=== PATIENT | male | born 1985 | race Caucasian/White ===

== ENCOUNTER 2020-10-22 11:29 | Outpatient (REF) | payer BC, OTHER, SELFPAY ==
[2020-10-22 13:03] LABS: HCT 44.9 % (40.0-50.0); HGB 15.4 g/dL (13.5-17.5); MCH 32.5 pg (27.0-33.0); MCHC 34.3 % (32.0-36.0); MCV 94.7 fL (80-95); MPV 10.7 fL (8.0-11.0); Platelet Count 229 10^3/uL (130-400); RBC 4.74 10^6/uL (4.36-5.78); RDW 11.5 % (11.8-14.1); RDW-SD 39.4 fL; WBC 6.21 10^3/uL (4.4-10.8)
[2020-10-22 14:09] LABS: ALT 37 U/L (16-63); AST 12 U/L (15-37); Albumin 4.2 g/dL (3.4-5.0); Alkaline Phosphatase 66 U/L (46-116); Anion Gap 8.6 mmol/L (3-11); BUN 19 mg/dL (7-18); Bilirubin, Total 0.4 mg/dL (0.2-1.0); CO2 28.4 mmol/L (21.0-32.0); Calcium 9.2 mg/dL (8.5-10.1); Calculated LDL 116 mg/dL (<100); Chloride 103 mmol/L (98-107); Cholesterol 189 mg/dL (<200); Glucose 349 mg/dL (74-106); HDL Cholesterol 51 mg/dL (40-60); Potassium 4.6 mmol/L (3.5-5.1); Sodium 140 mmol/L (136-145); Total Protein 7.8 g/dL (6.4-8.2); Triglyceride 112 mg/dL (<150)
[2020-10-22 14:23] LABS: Hemoglobin A1C 9.5 % (<5.7)
== END 2020-10-22 11:30 | disposition home or self-care (01) ==
LOC: NCHCN 11:29
PROVIDERS: Visit Provider Physician Assistant
DX: E11.29 Type 2 diabetes mellitus with other diabetic kidney complication (principal)
CPT/HCPCS: 80053; 80061; 85027; 83036

== ENCOUNTER 2021-01-08 14:26 | Outpatient (REF) | payer BC, OTHER, SELFPAY ==
[2021-01-08 14:54] LABS: FREE T4 1.05 ng/dL (0.76-1.46); Hemoglobin A1C 9.5 % (<5.7); TSH 1.24 uIU/mL (0.36-3.74)
[2021-01-08 20:12] LABS: COMMENT (LAB VIEW ONLY) 31.23 mg/dL; Microalb ug/mg Crea 84.2 ug/mg Cr
[2021-01-14 10:51] LABS: Testosterone, Free 12.8 ng/dL (4.65-18.1); Testosterone, Total 427 ng/dL (240-950)
== END 2021-01-08 14:27 | disposition home or self-care (01) ==
LOC: NCHCN 14:26
PROVIDERS: Visit Provider Physician Assistant
DX: E11.29 Type 2 diabetes mellitus with other diabetic kidney complication (principal); R68.82 Decreased libido
CPT/HCPCS: 84402; 84403; 82043; 82570; 83036; 84439; 84443

== ENCOUNTER 2021-02-14 04:19 | Outpatient (CLI) | payer BC, OTHER, SELFPAY ==
--- NOTE | 2021-02-14 14:35 | DI.MRI_ITS ---
Exam(s) MR BRAIN WO EXAM: MR BRAIN WO CLINICAL HISTORY: MOYAMOYA,I67.5,S/P BILAT STA BYPASS,? INFARCT OR ISCHEMIA TECHNIQUE: Multiplanar multisequence MRI of the brain was performed. COMPARISON: No exams were available for comparison FINDINGS: VENTRICLES AND EXTRA AXIAL SPACES: Normal in size and morphology for the patient's age. MIDLINE SHIFT: None. CEREBRAL PARENCHYMA: No focus of restricted diffusion to suggest acute infarct. No space-occupying le boby identified. There lucency seen in the basal ganglia bilaterally which may represent old lacunar infarcts. There is an area of encephalomalacia involving the left parietal lobe. HEMORRHAGE: None. BRAINSTEM/CEREBELLUM: Normal. CALVARIUM: Normal. VISUALIZED PARANASAL SINUSES/MASTOIDS:Clear. PITUITARY GLAND: Unremarkable. OTHER FINDINGS: None. IMPRESSION: No evidence of an acute infarct. DATA REPOSITORY:
== END 2021-02-14 04:39 ==
PROVIDERS: Visit Provider Occupational Therapist
DX: I67.5 Moyamoya disease (principal); Z95.1 Presence of aortocoronary bypass graft
CPT/HCPCS: 70551

== ENCOUNTER 2021-05-26 19:45 | Outpatient (REF) | payer OTHER, SELFPAY ==
[2021-05-28 10:26] LABS: HIV-1/2 Ag & Ab Screen Negative (Negative)
[2021-05-28 11:42] LABS: Syphilis Serology (RPR) Negative (Negative)
[2021-05-28 14:14] LABS: Chlamydia Result Negative (Negative); GC Result Negative (Negative)
== END 2021-05-26 19:46 | disposition home or self-care (01) ==
LOC: NCHCN 19:45
PROVIDERS: Visit Provider Physician Assistant
DX: Z11.4 Encounter for screening for human immunodeficiency virus [HIV] (principal); Z11.3 Encounter for screening for infections with a predominantly sexual mode of transmission; Z11.59 Encounter for screening for other viral diseases; Z72.51 High risk heterosexual behavior
CPT/HCPCS: 87389; 87491; 87591; 86592

== ENCOUNTER 2022-03-06 14:05 | Outpatient (REF) | payer MEDICARE, SELFPAY ==
[2022-03-06 19:40] LABS: HCT 41.2 % (40.0-50.0); HGB 14.5 g/dL (13.5-17.5); MCHC 35.2 % (32.0-36.0); MCV 94 fL (80-95); MPV 10.7 fL (8.0-11.0); Platelet Count 234 10^3/uL (130-400); RBC 4.39 10^6/uL (4.36-5.78); RDW 11.2 % (11.8-14.1); RDW-SD 37.9 fL; WBC 6.52 10^3/uL (4.4-10.8)
[2022-03-06 19:45] LABS: ALT 41 U/L (16-63); AST 17 U/L (15-37); Albumin 4.2 g/dL (3.4-5.0); Alkaline Phosphatase 70 U/L (46-116); Anion Gap 8.3 mmol/L (3-11); BUN 14 mg/dL (7-18); Bilirubin, Total 0.6 mg/dL (0.2-1.0); CO2 28.7 mmol/L (21.0-32.0); Calcium 9.7 mg/dL (8.5-10.1); Chloride 99 mmol/L (98-107); Glucose 169 mg/dL (74-106); Potassium 4.1 mmol/L (3.5-5.1); Sodium 136 mmol/L (136-145); Total Protein 7.8 g/dL (6.4-8.2)
[2022-03-06 20:03] LABS: Prothrombin Time 9.9 sec (9.3-11.0)
[2022-03-06 20:26] LABS: Hemoglobin A1C 9.6 % (<5.7)
== END 2022-03-06 14:06 | disposition home or self-care (01) ==
LOC: LBN 14:05
PROVIDERS: PCP Physician Assistant; Visit Provider Physician Assistant
DX: Z01.818 Encounter for other preprocedural examination (principal); E11.29 Type 2 diabetes mellitus with other diabetic kidney complication; Z86.73 Personal history of transient ischemic attack (TIA), and cerebral infarction without residual deficits
CPT/HCPCS: 80053; 85027; 83036; 85610; 85730

== ENCOUNTER 2022-03-10 10:21 | Outpatient (CLI) | payer MEDICARE, SELFPAY ==
[2022-03-10 10:56] LABS: PTT Activated 27.2 sec (21.0-27.5)
== END 2022-03-10 10:22 | disposition home or self-care (01) ==
PROVIDERS: PCP Physician Assistant; Visit Provider Physician Assistant
DX: Z01.818 Encounter for other preprocedural examination (principal)
CPT/HCPCS: 36415; 85730

== ENCOUNTER 2022-04-22 16:34 | Outpatient (REF) | payer MEDICARE, SELFPAY ==
[2022-04-22 16:06] LABS: COMMENT (LAB VIEW ONLY) 108.62 mg/dL; Microalb ug/mg Crea 43.5 ug/mg Cr
== END 2022-04-22 16:35 | disposition home or self-care (01) ==
LOC: NCHCN 16:34
PROVIDERS: PCP Physician Assistant; Visit Provider Physician Assistant
DX: R80.9 Proteinuria, unspecified (principal)
CPT/HCPCS: 82043; 82570

== ENCOUNTER 2023-01-26 09:42 | Outpatient (REF) | payer MEDICARE, SELFPAY ==
[2023-01-26 16:42] LABS: ALT 31 U/L (16-63); AST 14 U/L (15-37); Albumin 3.9 g/dL (3.4-5.0); Alkaline Phosphatase 64 U/L (46-116); Anion Gap 8.6 mmol/L (3-11); BUN 19 mg/dL (7-18); Bilirubin, Total 0.6 mg/dL (0.2-1.0); CO2 28.4 mmol/L (21.0-32.0); CREATININE 0.9 mg/dL (0.70-1.30); Calcium 9.3 mg/dL (8.5-10.1); Calculated LDL 125 mg/dL (<100); Chloride 100 mmol/L (98-107); Cholesterol 210 mg/dL (<200); Estimated GFR 111.42 (mL/min/1.73m2); Glucose 309 mg/dL (74-106); HDL Cholesterol 65 mg/dL (40-60); Potassium 4.5 mmol/L (3.5-5.1); Sodium 137 mmol/L (136-145); Total Protein 7.4 g/dL (6.4-8.2); Triglyceride 104 mg/dL (<150)
[2023-01-26 17:17] LABS: Hemoglobin A1C 10.4 % (<5.7)
== END 2023-01-26 09:43 | disposition home or self-care (01) ==
LOC: NCHCN 09:42
PROVIDERS: PCP Physician Assistant; Visit Provider Physician Assistant
DX: E11.29 Type 2 diabetes mellitus with other diabetic kidney complication (principal); E78.5 Hyperlipidemia, unspecified; F06.4 Anxiety disorder due to known physiological condition
CPT/HCPCS: 80053; 80061; 83036

== ENCOUNTER 2024-04-24 01:16 | Outpatient (CLI) | payer MEDICARE, MEDICAID, SELFPAY ==
--- NOTE | 2024-04-24 07:30 | DI.RAD_ITS ---
Exam(s) XR LUMBAR SPINE COMPLETE EXAM: XR LUMBAR SPINE COMPLETE CLINICAL HISTORY: Chronic low back pain,m54.50. TECHNIQUE: 2D digital imaging was performed. COMPARISON: No exams were available for comparison FINDINGS: Five views No evidence of fracture, listhesis, nor pars interarticularis defects. There is mild disc space narr owing and anterior osseous lipping at L2-3 level. There also left-sided osteophytes at L2-3. There is mild scoliosis convex left which appears to be related to asymmetric disc space narrowing on the r ight side of L4-5, seen on the frontal view. There is no obvious facet arthropathy. Sacroiliac joints appear unremarkable. IMPRESSION: Some degenerative disc disease as described above. DATA REPOSITORY: RADIATION DOSE DELIVERED:
--- NOTE | 2024-04-24 07:30 | DI.MRI_ITS ---
Exam(s) MR BRAIN WO EXAM: MR BRAIN WO CLINICAL HISTORY: f/u moyamoya, i67.5 TECHNIQUE: Multiplanar multisequence MRI of the brain was performed. MR MR BRAIN WO from 02/14/2021 FINDINGS: VENTRICLES AND EXTRA AXIAL SPACES: Normal in size and morphology for the patient's age. MIDLINE SHIFT: None. CEREBRAL PARENCHYMA: No focus of restricted diffusion to suggest acute infarct. No space-occupying le boby identified. Stable appearance of bilateral basal ganglia lacunar infarcts and old left frontal p arietal infarct. Able area of right temporal lobe encephalomalacia [id number] atrophy con dist proportionate to the patient's age, stable.. BRAINSTEM/CEREBELLUM: Normal. VISUALIZED PARANASAL SINUSES: Clear. MASTOIDS:Clear. Calvarium: Bilateral craniotomies again noted. No abnormal surrounding signal. Vasculature: Normal large vessels are grossly patent. PITUITARY GLAND: Unremarkable. ORBITS: Unremarkable. IMPRESSION: Stable appearance of bilateral lacunar infarcts, right temporal lobe encephalomalacia and old left te mporoparietal infarct. No new abnormalities DATA REPOSITORY:
== END 2024-04-24 01:36 ==
PROVIDERS: PCP Family Medicine; Visit Provider Family Medicine
DX: I67.5 Moyamoya disease (principal); M41.26 Other idiopathic scoliosis, lumbar region
CPT/HCPCS: 70551; 72110

== ENCOUNTER 2024-05-15 03:06 | Outpatient (CLI) | payer MEDICARE, SELFPAY ==
[2024-05-15 10:31] LABS: Abs Immature Grans 0.02 10^3/uL (0.0-0.06); Absolute Basophil Count 0.05 10^3/uL (0.0-0.2); Absolute Eosinophil Count 0.23 10^3/uL (0.0-0.7); Absolute Lymphocyte Count 1.48 10^3/uL (1.2-3.4); Absolute Monocyte Count 0.43 10^3/uL (0.1-0.8); Eosinophils % 4.6 %; HCT 46.6 % (40.0-50.0); HGB 15.7 g/dL (13.5-17.5); Immature Grans % 0.4 %; Lymphocytes % 29.5 %; MCH 32.4 pg (27.0-33.0); MCHC 33.7 % (32.0-36.0); MCV 96 fL (80-95); MPV 9.6 fL (8.0-11.0); Monocytes % 8.6 %; Neutrophils % 55.9 %; Platelet Count 196 10^3/uL (130-400); RBC 4.84 10^6/uL (4.36-5.78); RDW 11.8 % (11.8-14.1); RDW-SD 41.8 fL; WBC 5.01 10^3/uL (4.4-10.8)
[2024-05-15 10:58] LABS: ALT 27 U/L (16-63); AST 15 U/L (15-37); Albumin 3.8 g/dL (3.4-5.0); Alkaline Phosphatase 63 U/L (46-116); BUN 12 mg/dL (7-18); Bilirubin, Total 0.42 mg/dL (0.2-1.0); CREATININE 1.2 mg/dL (0.70-1.30); Calcium 9.3 mg/dL (8.5-10.1); Calculated LDL 83 mg/dL (<100); Chloride 106 mmol/L (98-107); Cholesterol 146 mg/dL (<200); Glucose 175 mg/dL (74-106); HDL Cholesterol 55 mg/dL (40-60); Potassium 4.6 mmol/L (3.5-5.1); Sodium 142 mmol/L (136-145); TSH (W/Ref FT4) 1.28 uIU/mL (0.36-3.74); Total Protein 7.6 g/dL (6.4-8.2); Triglyceride 41 mg/dL (<150)
== END 2024-05-15 03:07 | disposition home or self-care (01) ==
LOC: LBO 03:06
PROVIDERS: PCP Family Medicine; Referring Provider Family Medicine; Visit Provider Family Medicine
DX: E11.649 Type 2 diabetes mellitus with hypoglycemia without coma (principal); Z79.4 Long term (current) use of insulin; R53.83 Other fatigue
CPT/HCPCS: 36415; 80053; 80061; 84443; 85025

== ENCOUNTER 2024-06-12 01:15 | Outpatient (CLI) | payer MEDICARE, SELFPAY ==
--- NOTE | 2024-06-12 08:15 | DI.MRI_ITS ---
Exam(s) MR LUMBAR SPINE WO EXAM: MR LUMBAR SPINE WO CLINICAL HISTORY: low back pain,m54.50,chronic. TECHNIQUE: Multiplanar multisequence MRI of the Lumbar spine was performed. COMPARISON: CR XR LUMBAR SPINE COMPLETE from 04/24/2024 FINDINGS: Bones: The last intervertebral disc space is designated the L5/S1 level for the numbering purpose of this examination. The vertebral body heights are well maintained. Alignment is satisfactory. Mild d egenerative endplate signal changes are seen at L2-L3. There is a heterogeneous signal intensity julia sofía particularly noted in the sacrum and iliacs bilaterally. This is seen on both the T1 and T2 weig hted images. The areas show hypointense signal on both the T1 and T2 weighted images. Cord: The conus tip ends at the T12 level. It is of normal size and signal intensity. T12-L1: No disc herniations or bulges are present. No central spinal canal or neural foraminal stenos is. L1-2: No disc herniations or bulges are present. No central spinal canal or neural foraminal stenosis . L2-3: There is a mild diffuse disc bulge. Very mild narrowing of the central spinal canal is noted. No significant right neural foraminal stenosis is seen. There is mild narrowing of the left neural foramen. L3-4: No disc herniations or bulges are present. No central spinal canal or neural foraminal stenosis . L4-5: There is a mild diffuse disc bulge. No central spinal canal or neural foraminal stenosis. L5-S1: There is a small central disc herniation slightly to the left at this level. No nerve root co mpression or central spinal canal stenosis results. No neural foraminal stenosis is present. Soft tissues: The visualized SI joints and sacrum are well maintained. The paraspinal soft tissues ar e unremarkable. IMPRESSION: 1. Multilevel disc protrusions as described above. The findings do result in very mild central spina l canal narrowing and very mild left neural foraminal narrowing at L2-L3. 2. Mildly heterogeneous signal intensity pattern noted in the sacrum and iliac bones. An MRI of the pelvis without and with contrast is recommended for further evaluation. Unexpected findings DATA REPOSITORY:
== END 2024-06-12 01:35 ==
LOC: DI 01:15
PROVIDERS: PCP Family Medicine; Visit Provider Family Medicine
DX: M48.061 Spinal stenosis, lumbar region without neurogenic claudication (principal)
CPT/HCPCS: 72148

== ENCOUNTER 2024-08-24 07:24 | Outpatient (CLI) | payer MEDICARE, SELFPAY ==
[2024-08-24 07:41] VITALS: BP 109/80; PULSE 84; RESP 18; TEMP 36.7; O2SAT 96
[2024-08-24 08:12] VITALS: PULSE 87; O2SAT 95
[2024-08-24 08:20] VITALS: PULSE 77; O2SAT 97
[2024-08-24 08:30] VITALS: PULSE 71; O2SAT 94
--- NOTE | 2024-08-24 08:34 | PDOC.PAIN_ITS ---
Date of service: 08/24/24 Time of Service: 08:35 US Guided Injections Type of Ultrasound Guided Injection: Middle back Bilateral Quadratus muscle Trigger Point Injection Pre-Procedural Evaluation Tenderness at the bilateral QL muscles Referral Patient has been referred to the [facility] for Bilateral Quadratus muscle Middle back Trigger Point Injection for a chief complaint of Pre-Procedural Pain Score Pre-procedural pain score: 9/10 Reason for Exam Mid-back pain Patient Interview Patient was interviewed and medical record reviewed: Yes There were no contraindications to performing an US guided procedure. Risks,expected side effects, potential benefits were reviewed. The patient consent form was signed and witnessed. Standard time out procedure was performed. Patient Safety No issues at the proposed injection sites Procedure Description No sedation given for procedure Patient was placed in the prone position and the following Pulse Ox applied. Pre-Procedure ultrasound scanning performed using a Linear 9 MHz probe Site Preparation Chloroprep Local Anesthesia Skin and subcutaneous tissues anesthetized with: 2 mL of Lidocaine 2%. A 21 G 3.5 Pajunk ultrasound needle was placed under live US guidance using an in-plane approach to the target area. After visualization of the needle tip at the target area Lidocaine 2% were used. Total of Injectate/Medication Note: 10 cc. No steroid used secondary to high Hem A1c Negative aspiration for blood. [place] were removed without difficulty. Ultrasound images were captured and stored. Patient Mental Status Patient was alert and awake during procedure Vital Signs Vital signs were stable throughout the procedure and recorded by nursing. Follow Up/Discharge Follow up plans and appointments were discussed with patient. Post procedure instruction was given as documented in nursing documentation. Discharge criteria met and patient discharged from [facility] Management Center: Yes Post Procedure Pain Post Procedure Pain: 7/10 Patient tolerated procedure well Procedure Outcome: Successful Non US Guided Injections Procedure Description Patient was placed in the prone position Post Procedure Pain Post Procedure Pain: 7/10 Coding Conscious Sedation used for procedure: No CPT Codes: TRIGGER Pt Inj 1-2 muscles - 59046 ([id number] ~G) 50 - BILATERAL PROCEDURE Ultrasound - 14403 ([id number] ~G) 50 - BILATERAL PROCEDURE Additional Codes: Visualization of the needle tip - Ultrasound images captured/stored: Yes ([id number]) Date of Service ([id number]) Date of service: 08/24/24
[2024-08-24] MEDS: Lidocaine 2% Multi-Dose 20 ML VIAL IJ (08:38)
[2024-08-24] MEDS: Nerve Block Tray 1 EACH MC (08:38)
== END 2024-08-24 07:25 | disposition home or self-care (01) ==
LOC: PC 07:24
PROVIDERS: PCP Family Medicine; Visit Provider Preventive Medicine Occupational Medicine
DX: M79.18 Myalgia, other site (principal); M54.50 Low back pain, unspecified
CPT/HCPCS: 20552; J2003

== ENCOUNTER 2024-09-18 01:59 | Outpatient (CLI) | payer MEDICARE, SELFPAY ==
--- NOTE | 2024-09-18 12:50 | DI.MRI_ITS ---
Exam(s) MR PELVIS WO/W EXAM: MR PELVIS WO/W CLINICAL HISTORY: Heterogenous signal seen on sacrum and pelvis,abnormality of synovium COMPARISON: CR XR LUMBAR SPINE COMPLETE from 04/24/2024 MR MR LUMBAR SPINE WO from 06/12/2024 TECHNIQUE: Performed on 1.5 opal unit with both pre and post contrast infused sequences. Contrast i njected was 18 mL Dotarem FINDINGS: Bones: There are no fractures. No evidence of avascular necrosis of the hips. Disc findings are as discussed on recent lumbar spine MRI report. There multiple foci of T1 marrow hypointensity in both sides of the pelvis with corresponding hyperin tensity on fat sat T2 sequences and exhibiting very mild enhancement at these levels on postcontrast fat-sat T1 sequences. These are nonexpansile. Musculotendinous structures: Musculotendinous structures demonstrate no abnormality. The visualized intrapelvic structures exhibit no obvious abnormalities. IMPRESSION: Heterogeneous marrow signal which may represent regions persistent red marrow, more so than lytic bon e lesions. Recommend whole body nuclear bone scan follow-up. DATA REPOSITORY:
[2024-09-18] MEDS: Gadoterate meglumine 20 ML SYRINGE 18 ML IVP (15:15)
[2024-09-18] MEDS: Normal Saline Flush 10 ML SYR IJ (15:17)
--- NOTE | 2024-09-18 21:13 | DI.VRAD_ITS ---
PROCEDURE INFORMATION: Exam: MR Pelvis Without and With Contrast, Sacrum Exam date and time: 09/18/2024 3:09 PM Age: 38 years old Clinical indication: Other: Adnormal bone signal; Additional info: Heterogenous signal seen on sacrum and pelvis, abnormality of synovium TECHNIQUE: Imaging protocol: Magnetic resonance imaging of the pelvis without and with contrast. Exam focused on the sacrum. Total images: 1226 Contrast material: DOTEREM; Contrast volume: 18 ml; Contrast route: INTRAVENOUS (IV); COMPARISON: MR LUMBAR SPINE WO 06/12/2024 12:55 PM FINDINGS: Urinary bladder: No bladder wall thickening. Lymph nodes: No pelvic adenopathy. Bones/joints: There is mild heterogeneity to the marrow signal involving the pelvic bones and sacrum characterized by regions of mild T1/T2 stir hyperintensity without definite enhancement. Similar symmetric signal seen within the proximal femurs. Lumbar levoscoliosis. Disc desiccation and mild disc bulging at L4-L5 and L5-S1. Schmorl's node superior endplate L5. No sacroiliitis. Soft tissues: Visualized musculature unremarkable. IMPRESSION: Marrow heterogeneity which may represent regions of red marrow rather than more aggressive bony pathology. Consider bone scan correlation if further clinical concern. Dictated and Authenticated by: David Lopez MD. Orderin Rodrigo Downey MD
== END 2024-09-18 02:19 ==
PROVIDERS: PCP Family Medicine; Visit Provider Family Medicine
DX: R93.7 Abnormal findings on diagnostic imaging of other parts of musculoskeletal system (principal)
CPT/HCPCS: 72197

== ENCOUNTER 2024-10-18 02:14 | Outpatient (CLI) | payer MEDICARE, SELFPAY ==
--- NOTE | 2024-10-18 07:15 | DI.NM_ITS ---
Exam(s) NM BONE SCAN WHOLE BODY GRP EXAM: NM BONE SCAN WHOLE BODY GRP CLINICAL HISTORY: F/U ABNL MRI PELVIS,R93.5,HETEROGENOUS MARROW SIGNAL,? RED MARROW. TECHNIQUE: Injected Dose: 25 mCi Tc-99m MDP Delayed Images: 2-3 hours. COMPARISON: MR MR PELVIS WO/W from 09/18/2024 FINDINGS: There is no abnormal focal marrow uptake in the pelvis nor elsewhere in the skeleton with the excepti on of a focus of increased uptake in the right side of the face at the mandible level. IMPRESSION: 1. Single focus of increased uptake which appears to be in the right-side of the mandible and most pr obably related to dental abnormality. Recommend mandible plain films. 2. No significant abnormal uptake seen elsewhere in the skeleton. DATA REPOSITORY:
== END 2024-10-18 02:34 ==
LOC: DI 02:14
PROVIDERS: PCP Family Medicine; Visit Provider Family Medicine
DX: R93.5 Abnormal findings on diagnostic imaging of other abdominal regions, including retroperitoneum (principal)
CPT/HCPCS: 78306

== ENCOUNTER 2024-11-11 14:46 | Emergency (ER) | payer MEDICARE, SELFPAY ==
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
[2024-11-11 14:58] VITALS: BP 146/90; PULSE 84; RESP 20; TEMP 36.9; O2SAT 98
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
== END 2024-11-11 16:18 | disposition home or self-care (01) ==
PROVIDERS: Emergency Provider Emergency Medicine; PCP Family Medicine
DX: S40.011A Contusion of right shoulder, initial encounter (principal); V47.6XXA Car passenger injured in collision with fixed or stationary object in traffic accident, initial encounter
CPT/HCPCS: 99283 ×2; 73030